=== PATIENT | male | born 1960 | race African-American/Black ===

== ENCOUNTER 2020-05-02 21:51 | Emergency (ER) | payer OTHER ==
[2020-05-02 22:05] VITALS: BMI 28.0
[2020-05-03] MEDS ORDERED: VANCOMYCIN 1 GM in D5W (PRE-DOCKED) 1,000 MG/250 ML IVPB ONE (00:28)
[2020-05-03] MEDS ORDERED: AMPICILLIN NA/SULBACTAM NA 1.5 GM in SODIUM CHLORIDE 100 ML IVPB ONE (00:42)
--- NOTE | 2020-05-03 00:42 | PDOC ---
Attending Attestation - Resident Resident Name: RyansusannaMuniryoselyn - ED Attending Attestation I have performed the following: I have examined & evaluated the patient, The case was reviewed & discussed with the resident, I agree w/resident's findings & plan - HPI HPI: 05/03/20 00:52 Pt comes with left hand ulnar aspect pimple/abscess that has gotten progressively worse over the last 3 days. Pt's hand is swollen and redness goes up the arm despite oral antibiotics. - Physicial Exam PE: 05/03/20 00:53 Normal heart and lungs Pt has no fever Pt has no abd pain no flank pain Pt has pain in the left hand with palpation Pt has right axillary hidradenitis/folliculitis that popped open on it's own and has drained. 05/03/20 01:48 Pt will be admitted; hand infection looks bad - Medical Decision Making 05/03/20 00:54 ABX via IV; labs; admission wound culture sent 05/03/20 00:55 XR pending 05/03/20 01:48 Pt's BUN and Cr are elevated. 05/03/20 01:48 Pt has elevated WBC count. 05/03/20 03:15 EKG has RBBB and LBBB; we hav no old EKG for comparison. Discharge - Discharge Information Problems reviewed: Yes Clinical Impression/Diagnosis: Abscess, Abscess of left hand Condition: Stable Disposition: TRANSFER ACUTE CARE/OTHER HOSP - Follow up/Referral - Patient Discharge Instructions - Post Discharge Activity
[2020-05-03] MEDS ORDERED: AMPICILLIN SODIUM 2 GM VIAL ONE (00:56)
[2020-05-03] MEDS ORDERED: VANCOMYCIN 1 GRAM (PRE-DOCKED) 1,000 MG/250 ML BAG IVPB ONE (00:56)
[2020-05-03 01:00] LABS: HEMATOCRIT 39.9 % (35.4-49); HEMOGLOBIN 13.7 GM/dL (11.7-16.9); MCHC 34.3 g/dl (32.0-35.9); MEAN CELL VOLUME 96.3 fl (80-96); MEAN PLT VOLUME 6.6 fl (7.5-11.1); PLATELET COUNT 405 K/MM3 (134-434); RBC 4.14 M/mm3 (4.00-5.60); RDW 12.8 % (11.9-15.9); WHITE BLOOD COUNT 14.5 K/mm3 (4.0-10.0)
[2020-05-03] MEDS ORDERED: morphine CARPU-JECT 2 MG/1 ML DISP.SYRIN IVPUSH ONE (01:07)
[2020-05-03 01:28] LABS: BLOOD UREA NITROGEN 24.4 mg/dL (7-18); CALCIUM 9.1 mg/dL (8.5-10.1); POTASSIUM 4.2 mmol/L (3.5-5.1)
[2020-05-03] MEDS ORDERED: MORPHINE SULFATE 2 MG/ML VIAL ONE (01:39)
[2020-05-03] MEDS ORDERED: SODIUM CHLORIDE 0.9% 500 ML INFUS.BAG IV ONE (01:47)
--- NOTE | 2020-05-03 02:14 | PN ---
Teaching Attending Note Name of Resident: Maggi Castro ATTENDING PHYSICIAN STATEMENT I saw and evaluated the patient. I reviewed the resident's note and discussed the case with the resident. I agree with the resident's findings and plan as documented. SUBJECTIVE: Patient is a 60 year old man with a PMH of HTN who presents with a 5 day history of a left pinky abscess. The lesion started out as a blister that grew to break the skin and begin leaking pus. Swelling has evolved to prevent flexion of the pinky. He has taken motrin for pain with minimal relief. He has had 2 other similar abscesses form, one on his face that spontaneously resolved and one on his torso that was drained by his doctor and given Bactrim 2 days ago. He denies fever, chills, nausea, vomiting, shortness of breath, chest pain, diarrhea, dysuria, numbness or tingling. Denies alcohol, tobacco or illicit drug use. No sick contacts or recent travels. Family history is unremarkable. OBJECTIVE: Alert Vital Signs Period Temp Pulse Resp BP Sys/Woodruff Pulse Ox Last 24 Hr 98.6 F 86 18 144/74 97 HEENT: No Jaundice, eye redness or discharge, PERRLA, EOMI. Normocephalic, atraumatic. External ears are normal and hearing is grossly intact. No nasal discharge. Neck: Supple, nontender. No palpable adenopathy or thyromegaly. No JVD Chest: Good effort. Clear to auscultation and percussion. Heart: Regular. No S3, rub or murmur Abdomen: Not distended, soft, nontender and no HSM. No rebound or guarding. Normal bowel sounds. Ext: Peripheral pulses intact. No leg edema. Open wound on the dorsum and base of left 5th finger with swollen left hand extending up the wrist/arm; warm and tender. Open wound at the site of the drained right axilla abscess. Skin: Warm and dry. No petechiae, rash or ecchymosis. Neuro: Alert. Oriented x3. CN 2-12 grossly intact. Sensation grossly intact in all four extremities and DTR are symmetric. Psych: Appropriate mood and affect. Good insight. Abnormal Lab Results 05/03/20 05/03/20 00:44 00:44 WBC 14.5 H MCV 96.3 H MPV 6.6 L Anion Gap 4 L BUN 24.4 H Creatinine 2.0 H Random Glucose 123 H C-Reactive Protein 3.6 H Current Medications Generic Name Dose Route Start Last Admin Trade Name Gunnar PRN Reason Stop Dose Admin Heparin Sodium (Porcine) 5,000 unit 05/03/20 10:00 Heparin - SQ Q8H-IV MARKELL ASSESSMENT AND PLAN: 1. Left hand abscess and cellulitis/right axilla abscess - Risk factor for absc esses unclear. Will culture pus drainage/wound, get CT scan of left hand and right axilla and continue IV Vancomycin (dose-adjusted for GFR) and consult ID/Surgery. Get urinalysis, HIV test, CMP and HbA1c. May ultimately need MRI of his hand, depending on the CT scan results. Viral testing for COVID-19 ordered and patient placed on airborne, droplet and contact isolation. EKG pending. Will continue comprehensive care for all of patients comorbid conditions. 2. WILLIAM ? Cause unclear though Bactrim toxicity is a likely culprit. Will get urinalysis, CPK, urine protein/creatinine ratio, phosphate, PTH, kidney sonogram, hydrate gently, monitor urine output and consult Nephrology. Avoid nephrotoxic agents such as NSAIDS, aminoglycosides, contrast dyes and certain Alternative medicine products. 3. Hypertension Will hold Lisinopril and HCTZ until azotemia ?resolves and use Amlodipine for BP control in the meantime. Subsequently, will revise regimen to ensure [id number] excellent BP control. Patient counseled on the injurious effects of uncontrolled hypertension. Nonpharmacologic measures to control hypertension like weight loss, salt restriction and exercise stressed. Importance of adherence to treatment regimen and attainment of normotension emphasized. 4. DVT prophylaxis - Heparin 5000u sq tid. 5. Advance directives - Full code
--- NOTE | 2020-05-03 02:16 | PDOC ---
History of Present Illness - General Chief Complaint: Wound Stated Complaint: L PINKY INFECTION Time Seen by Provider: 05/03/20 00:42 History Source: Patient Exam Limitations: No Limitations - History of Present Illness Initial Comments: 60 yo male presents with a 5 day history of a left pinky abscess. The lesion started out as a blister that grew to break the skin and begin leaking pus. Swelling has evolved to prevent flexion of the pinky. He has taken motrin for pain with minimal relief. He has had 2 other similar abscesses form, one on his face that spontaneously resolved and one on his torso that was drained by his doctor and given Bactrim 2 days ago. He denies fever, chills, nausea, vomiting, shortness of breath, chest pain. He denies numbness and tingling. Past History - Medical History Allergies/Adverse Reactions: Allergies Allergy/AdvReac Type Severity Reaction Status Date / Time No Known Allergies Allergy Verified 05/02/20 22:05 Home Medications: Ambulatory Orders Lisinopril/Hydrochlorothiazide [Lisinopril-Hctz 20-12.5 mg Tab] 1 tab PO DAILY 05/03/20 COPD: No - Psycho-Social/Smoking History Smoking History: Never smoked - Substance Abuse Hx (Audit-C & DAST Scrn) How often the patient has a drink containing alcohol: Monthly or less Score: In Men: 4 or > Positive; In Women: 3 or > Positive: 1 Screen Result (Pos requires Nsg. Audit-10AR): Negative Review of Systems - Review of Systems Able to Perform ROS?: Yes Constitutional: No: Chills, Diaphoresis, Fever HEENTM: No: Blurred Vision, Double Vision Respiratory: No: Cough, Shortness of Breath Cardiac (ROS): No: Chest Pain, Irregular Heart Rate, Palpitations ABD/GI: No: Constipated, Diarrhea, Nausea, Vomiting : No: Burning, Dysuria, Flank Pain Musculoskeletal: Yes: Joint Pain (proximal left pinky finger.), Joint Swelling. No: Muscle Pain Integumentary: Yes: Erythema, Lesions Neurological: No: Headache, Numbness, Paresthesia, Tingling Psychiatric: No: Anxiety, Depression, Mood Swings Endocrine: No: Excessive Sweating, Intolerance to Cold, Intolerance to Heat *Physical Exam - Vital Signs Last Vital Signs Temp Pulse Resp BP Pulse Ox 98.6 F 86 18 144/74 97 05/02/20 22:02 05/02/20 22:02 05/02/20 22:02 05/02/20 22:02 05/02/20 22:02 - Physical Exam General Appearance: Yes: Appropriately Dressed. No: Apparent Distress Respiratory/Chest: positive: Lungs Clear, Normal Breath Sounds. negative: Respiratory Distress Cardiovascular: positive: Regular Rhythm, Regular Rate, S1, S2 Extremity: positive: Erythema, Other (2 cm abscess. Skin is broken at tip of abscess with mild pus leakage. Background of cellulitus which spreads up to elbow. Site is warm and tender to the touch. ) Integumentary: positive: Dry, Warm, Erythema, Rash Neurologic: positive: Fully Oriented, Alert, Normal Mood/Affect ED Treatment Course - LABORATORY CBC & Chemistry Diagram: 05/03/20 00:44 05/03/20 00:44 - ADDITIONAL ORDERS Additional order review: Laboratory Results 05/03/20 00:44 Sodium 138 Potassium 4.2 Chloride 103 Carbon Dioxide 32 Anion Gap 4 L BUN 24.4 H Creatinine 2.0 H Est GFR (CKD-EPI)AfAm 41.12 Est GFR (CKD-EPI)NonAf 35.48 Random Glucose 123 H Calcium 9.1 C-Reactive Protein 3.6 H 05/03/20 00:44 RBC 4.14 MCV 96.3 H MCHC 34.3 RDW 12.8 MPV 6.6 L - RADIOLOGY Radiology Studies Ordered: Category Date Time Status HAND- LEFT [RAD] Stat Radiology 05/03/20 00:43 Ordered - Medications Given in the ED: ED Medications Discontinued Medications Generic Name Dose Route Start Last Admin Trade Name Gunnar PRN Reason Stop Dose Admin Ampicillin Sodium/Sulbactam 100 mls @ 200 mls/hr 05/03/20 00:42 05/03/20 01:10 Sodium 1.5 gm/ Sodium Chloride IVPB 05/03/20 01:11 200 mls/hr ONCE ONE Administration Medical Decision Making - Medical Decision Making 60 yo presents with an abscess on his 5th digit that started as a blister. He has been placed on Vanco and Unasyn. Blood cultures and wound cultures have been sent. CMP identified an elevated creatinine of 2.0. Morphine (2mg) was given for pain control. Pt is being admitted for administration of IV antibiotics and followup for WILLIAM. 05/03/20 03:41 05/03/20 03:43 05/03/20 03:44 Discharge - Discharge Information Problems reviewed: Yes Clinical Impression/Diagnosis: Abscess Condition: Stable Disposition: HOME - Admission Yes - Follow up/Referral - Patient Discharge Instructions - Post Discharge Activity
--- NOTE | 2020-05-03 03:20 | HP ---
CHIEF COMPLAINT: PCP: HISTORY OF PRESENT ILLNESS: 60 yo M PMH of HTN presents to ED for 6 days worsening cellulitis on L 5th digit. pt states that infection began as small pimple that he popped and progressively worsened. three days ago pt saw PMD and was prescribed oral abx ( he could not remember the name), yet the infection still worsened extending past his wrist. pt states it is painful. pt states 2 weeks ago pt had an " in grown hair" which he manipulated and it still hasnt healed. pt states that this never occurred in the past. pt denies any fevers, chills, nausea vomiting. endorses compliance with medications ER course was notable for: (1)ampicillin, vancomycin (2)1 L NS (3)morphine Recent Travel: denies PAST MEDICAL HISTORY:HTN PAST SURGICAL HISTORY: hernia repair as child Social History: Smoking:denies Alcohol:denies Drugs: denies Allergies No Known Allergies Allergy (Verified 05/02/20 22:05) HOME MEDICATIONS: Lisinopril 20, HCTZ 12.5 REVIEW OF SYSTEMS CONSTITUTIONAL: Absent: fever, chills, diaphoresis, generalized weakness, malaise, loss of appetite, weight change HEENT: Absent: rhinorrhea, nasal congestion, throat pain, throat swelling, difficulty swallowing, mouth swelling, ear pain, eye pain, visual changes CARDIOVASCULAR: Absent: chest pain, syncope, palpitations, irregular heart rate, lightheadedness, peripheral edema RESPIRATORY: Absent: cough, shortness of breath, dyspnea with exertion, orthopnea, wheezing, stridor, hemoptysis GASTROINTESTINAL: Absent: abdominal pain, abdominal distension, nausea, vomiting, diarrhea, constipation, melena, hematochezia GENITOURINARY: Absent: dysuria, frequency, urgency, hesitancy, hematuria, flank pain, genital pain MUSCULOSKELETAL: Absent: myalgia, arthralgia, joint swelling, back pain, neck pain SKIN: Present: erythema and abscess on L 5th digit and R axilla Absent: rash, itching, pallor HEMATOLOGIC/IMMUNOLOGIC: Absent: easy bleeding, easy bruising, lymphadenopathy, frequent infections ENDOCRINE: Absent: unexplained weight gain, unexplained weight loss, heat intolerance, cold intolerance NEUROLOGIC: Absent: headache, focal weakness or paresthesias, dizziness, unsteady gait, s eizure, mental status changes, bladder or bowel incontinence PHYSICAL EXAMINATION Vital Signs - 24 hr 05/02/20 05/03/20 22:02 02:35 Temperature 98.6 F Pulse Rate 86 Respiratory 18 Rate Blood Pressure 144/74 O2 Sat by Pulse 97 98 Oximetry (%) GENERAL: Awake, alert, and fully oriented, in no acute distress. HEAD: Normal with no signs of trauma. LUNGS: Breath sounds equal, clear to auscultation bilaterally. No wheezes, and no crackles. No accessory muscle use. HEART: Regular rate and rhythm, normal S1 and S2 without murmur, rub or gallop. ABDOMEN: Soft, nontender, not distended, normoactive bowel sounds, no guarding, no rebound, no masses MUSCULOSKELETAL: No CVA tenderness. UPPER EXTREMITIES:L 5th digit purulent cellulitis extending to wrist. R axilla open wound with scarring around LOWER EXTREMITIES: 2+ pulses, warm, well-perfused. No calf tenderness. No peripheral edema. Laboratory Results - last 24 hr 05/03/20 05/03/20 05/03/20 00:44 00:44 01:11 WBC 14.5 H RBC 4.14 Hgb 13.7 Hct 39.9 MCV 96.3 H MCH 33.0 MCHC 34.3 RDW 12.8 Plt Count 405 MPV 6.6 L ESR 26 H Sodium 138 Potassium 4.2 Chloride 103 Carbon Dioxide 32 Anion Gap 4 L BUN 24.4 H Creatinine 2.0 H Est GFR (CKD-EPI)AfAm 41.12 Est GFR (CKD-EPI)NonAf 35.48 Random Glucose 123 H Calcium 9.1 C-Reactive Protein 3.6 H ASSESSMENT/PLAN: 60 yo M PMH of HTN presents to ED for 6 days worsening cellulitis on L 5th digit.Pt is admitted for cellulitis Cellulitis of L 5th digit and R axilla - failed outpt tx - s/p vanc and ampicillin in ED . will cont vanc - will get CT of the 5th digit of L hand and R axilla to better visualiize. abscess may need surgical drainage - wound cx, blood cx - will get A1C - will get HIV testing WILLIAM vs CKD - Cr 2.0, unknown baseline. - cont fluids - renal u/s , urine protein/cr ratio, UA HTN - cont home lisinopril and HCTZ F/E/N - IV NS - monitor lytes - low sodium diet Dispo: admit to medicine ATTENDING PHYSICIAN STATEMENT I saw and evaluated the patient. I reviewed the resident's note and discussed the case with the resident. I agree with the resident's findings and plan as documented. SUBJECTIVE: OBJECTIVE: ASSESSMENT AND PLAN:
[2020-05-03 03:30] LABS: BILIRUBIN,TOTAL 0.4 mg/dL (0.2-1); MAGNESIUM 2.3 mg/dL (1.8-2.4); PHOSPHOROUS 3.2 mg/dL (2.5-4.9); TOT PROT 7.8 g/dl (6.4-8.2)
[2020-05-03] MEDS ORDERED: SODIUM CHLORIDE 1,000 ML IV SCH (04:00)
[2020-05-03] MEDS ORDERED: HEPARIN NA (PORCINE) 5,000 UNITS/ML 1ML VIAL SQ SCH (06:00)
[2020-05-03] MEDS ORDERED: HEPARIN NA (PORCINE) 5,000 UNITS/ML 1ML VIAL ONE (06:22)
[2020-05-03 07:36] LABS: BASO % 1.2 % (0-2.0); EOS % 2.2 % (0-4.5); HEMATOCRIT 37.5 % (35.4-49); HEMOGLOBIN 12.8 GM/dL (11.7-16.9); LYMPH % 22.9 % (8-40); MCH 32.6 pg (25.7-33.7); MCHC 34.2 g/dl (32.0-35.9); MEAN CELL VOLUME 95.5 fl (80-96); MEAN PLT VOLUME 6.8 fl (7.5-11.1); MONO % 5.6 % (3.8-10.2); NEUT % 68.1 % (42.8-82.8); PLATELET COUNT 369 K/MM3 (134-434); RBC 3.93 M/mm3 (4.00-5.60); RDW 12.5 % (11.9-15.9); WHITE BLOOD COUNT 12.3 K/mm3 (4.0-10.0)
[2020-05-03 08:04] LABS: ALBUMIN 3.5 g/dl (3.4-5.0); BILIRUBIN,TOTAL 0.4 mg/dL (0.2-1); BLOOD UREA NITROGEN 22.7 mg/dL (7-18); CALCIUM 8.3 mg/dL (8.5-10.1); CREATININE 1.6 mg/dL (0.55-1.3); MAGNESIUM 2.2 mg/dL (1.8-2.4); PHOSPHOROUS 2.8 mg/dL (2.5-4.9); POTASSIUM 3.7 mmol/L (3.5-5.1)
--- NOTE | 2020-05-03 08:23 | PDOC ---
*Physical Exam - Vital Signs Last Vital Signs Temp Pulse Resp BP Pulse Ox 97.1 F L 62 16 141/82 97 05/03/20 06:33 05/03/20 07:20 05/03/20 07:20 05/03/20 07:20 05/03/20 07:20 ED Treatment Course - LABORATORY CBC & Chemistry Diagram: 05/03/20 05:40 05/03/20 05:40 - ADDITIONAL ORDERS Additional order review: Laboratory Results 05/03/20 00:44 Sodium 138 Potassium 4.2 Chloride 103 Carbon Dioxide 32 Anion Gap 4 L BUN 24.4 H Creatinine 2.0 H Est GFR (CKD-EPI)AfAm 41.12 Est GFR (CKD-EPI)NonAf 35.48 Random Glucose 123 H Calcium 9.1 Phosphorus 3.2 Magnesium 2.3 Total Bilirubin 0.4 AST 20 ALT 20 Alkaline Phosphatase 139 H C-Reactive Protein 3.6 H Total Protein 7.8 Albumin 4.0 05/03/20 00:44 RBC 4.14 MCV 96.3 H MCHC 34.3 RDW 12.8 MPV 6.6 L - Medications Given in the ED: ED Medications Discontinued Medications Generic Name Dose Route Start Last Admin Trade Name Freq PRN Reason Stop Dose Admin Ampicillin Sodium/Sulbactam 100 mls @ 200 mls/hr 05/03/20 00:42 05/03/20 01:10 Sodium 1.5 gm/ Sodium Chloride IVPB 05/03/20 01:11 200 mls/hr ONCE ONE Administration Morphine Sulfate 2 mg 05/03/20 01:07 05/03/20 02:00 Morphine Injection - IVPUSH 05/03/20 01:08 2 mg ONCE ONE Administration Sodium Chloride 1,000 ml 05/03/20 01:47 05/03/20 03:29 Normal Saline - IV 05/03/20 01:48 1,000 ml ONCE ONE Administration Vancomycin HCl 1,000 mg 05/03/20 00:28 05/03/20 02:19 Vancomycin (Pre-Docked) IVPB 05/03/20 00:29 1,000 mg ONCE ONE Administration Protocol Medical Decision Making - Medical Decision Making Hospitalist informed me this patient needs a hand surgeon and we do not have on employee relation manager in the hospital today - Will transfer patient over to [facility] 05/03/20 08:22 - Transfer to [facility] initiated - Speaking with Tad at [facility] - Requests face sheet to [phone]- Attention transfer center 05/03/20 08:30 - Transfer center called back Dr. Broderick - Hand Surgeon 05/03/20 08:39 - Chief resident Najma states she cannot accept this patient bc patient is already admitted to hospital and floor to floor transfers need to be approved by attending darshana Douglas - Transfer center is calling Dr. Douglas who will call back Dr. Broderick - 2nd year resident - Attending doesn't want transfer bc history doesn't sound concerning - I am requesting to speak with Plasatic surgeon attending - Spoke with Plastic attending they will accept the patient as an ED to ED transfer Accepting attending in the ER: Geraldo Sharpe 05/03/20 09:[address] Guillory and she will cancel the admission - Transfer center says ambulance will be here in 20 minutes - I spoke with admitting they will place the patients status back into the ER - Transfer paper work filled out - Patient informed Discharge - Discharge Information Problems reviewed: Yes Clinical Impression/Diagnosis: Abscess, Abscess of left hand Condition: Stable Disposition: TRANSFER ACUTE CARE/OTHER HOSP - Admission No - Follow up/Referral - Patient Discharge Instructions - Post Discharge Activity - Transfer to Acute Care Facility Receiving Facility Name: [facility] Accepting Physician:: Geraldo Sharpe
[2020-05-03 08:44] VITALS: TEMP 98.3
[2020-05-03 10:00] VITALS: BP 144/73; PULSE 62
[2020-05-03] MEDS ORDERED: HYDROCHLOROTHIAZIDE 12.5 MG CAPSULE (FP) PO SCH (10:00)
[2020-05-03] MEDS ORDERED: amLODIPine BESYLATE 5 MG TABLET (FP) PO SCH (10:00)
[2020-05-03] MEDS ORDERED: PATIENT'S OWN MEDICATION (NON-FORMULARY) (Lisinopril/Hydrochlorothiazide [Lisinopril-Hctz PO SCH (10:00)
== END 2020-05-03 10:20 | disposition short-term general hospital (02) ==
LOC: JER 21:51 → UNDOADMIN 05-03 03:52 → JERBED 05-03 03:52 → JER 05-03 10:20
PROC: 3E023GC Introduction of Other Therapeutic Substance into Muscle, Percutaneous Approach (ICD-10-PCS; principal; 2020-05-03)
PROC: 3E033GC Introduction of Other Therapeutic Substance into Peripheral Vein, Percutaneous Approach (ICD-10-PCS; principal; 2020-05-03)
DX: L02.512 Cutaneous abscess of left hand (principal)
CPT/HCPCS: 36415; 73200-TC-RT; 76775-TC; 80048; 80053; 83036; 83735; 83970; 84100; 85025; 85027; 85651; 86140; 87040; 87070; 87186; 87205; 99285-25; J1644; U0003